=== PATIENT | female | born 1985 | race Caucasian/White ===

== ENCOUNTER → 2018-03-23 17:59 | Outpatient (CLI) | payer OTHER ==
[2018-03-23 19:12] LABS: BASOPHILS 1.3 % (0-2); EOSINOPHILS 5.8 % (0-7); HEMATOCRIT 23.2 % (36.0-48.0); IMMATURE GRANULOCYTES 0.1 % (0-5); LYMPHOCYTES 17.2 % (15-50); MCH 28.9 pg (26.0-34.0); MCHC 31.9 g/dL (31.0-37.0); MCV 90.6 fL (80.0-100.0); MEAN PLATELET VOLUME 9.7 fL (7.4-10.4); MONOCYTES 8.9 % (2-11); NEUTROPHILS 66.7 % (40-80); PLATELET COUNT 265 10x3/uL (130-400); RBC 2.56 10x6/uL (4.00-5.40); RDW 19.5 % (11.5-14.5); WBC 7.6 10x3/uL (4.8-10.8)
[2018-03-23 19:20] LABS: HEMOGLOBIN 7.4 g/dL (12-16)
[2018-03-23 19:33] LABS: ALBUMIN 1.8 g/dL (3.4-5.0); ALKALINE PHOSPHATASE 187 U/L (46-116); ALT (SGPT) 117 U/L (10-68); BILIRUBIN - DIRECT 1.23 mg/dL (0.00-0.30); BILIRUBIN - INDIRECT 1.03 mg/dL (0.00-1.00); BILIRUBIN - TOTAL 2.26 mg/dL (0.2-1.3); CALC OSMOLALITY 269 mosm/kg (275-300); CALCIUM 8.1 mg/dL (8.5-10.1); CARBON DIOXIDE 25.3 mmol/L (21.0-32.0); CHLORIDE - SERUM 100 mmol/L (98-107); CREATININE - SERUM 0.7 mg/dL (0.6-1.3); GLUCOSE 104 mg/dL (74-106); POTASSIUM - SERUM 3.2 mmol/L (3.5-5.1); PROTEIN - SERUM 7.1 g/dL (6.4-8.2); SODIUM 136 mmol/L (136-145); UREA NITROGEN 8 mg/dL (7-18); eGFR NON AFRICAN AMERICAN > 90 mL/min (90-120)
== END | disposition home or self-care (01) ==
LOC: D.LABREF 17:59
PROVIDERS: Specialist
DX: Z51.81 Encounter for therapeutic drug level monitoring (principal); Z79.2 Long term (current) use of antibiotics; I38 Endocarditis, valve unspecified

== ENCOUNTER → 2018-03-30 20:30 | Outpatient (CLI) | payer OTHER ==
[2018-03-30 21:54] LABS: HEMATOCRIT 24.6 % (36.0-48.0); HEMOGLOBIN 7.9 g/dL (12-16); MCH 28.9 pg (26.0-34.0); MCHC 32.1 g/dL (31.0-37.0); MCV 90.1 fL (80.0-100.0); PLATELET COUNT 226 10x3/uL (130-400); RBC 2.73 10x6/uL (4.00-5.40); RDW 20.9 % (11.5-14.5)
[2018-03-30 21:56] LABS: CALC OSMOLALITY 278 mosm/kg (275-300); CALCIUM 8.2 mg/dL (8.5-10.1); CARBON DIOXIDE 22.4 mmol/L (21.0-32.0); CHLORIDE - SERUM 107 mmol/L (98-107); CREATININE - SERUM 0.8 mg/dL (0.6-1.3); GLUCOSE 112 mg/dL (74-106); SODIUM 140 mmol/L (136-145); UREA NITROGEN 9 mg/dL (7-18); eGFR NON AFRICAN AMERICAN 87 mL/min (90-120)
[2018-03-30 21:57] LABS: WBC 0.6 10x3/uL (4.8-10.8)
[2018-03-30 22:01] LABS: POTASSIUM - SERUM 2.4 mmol/L (3.5-5.1)
[2018-03-30 22:44] LABS: LYMPHOCYTES 84 % (15-50); MONOCYTES 10 % (2-11); NEUTROPHILS 6 % (40-80); PLATELET ESTIMATE NORMAL
[2018-03-31 08:48] LABS: ALBUMIN 1.4 g/dL (3.4-5.0); BILIRUBIN - DIRECT 1.94 mg/dL (0.00-0.30); BILIRUBIN - INDIRECT 1.25 mg/dL (0.00-1.00); BILIRUBIN - TOTAL 3.19 mg/dL (0.2-1.3); PROTEIN - SERUM 6.1 g/dL (6.4-8.2)
== END | disposition home or self-care (01) ==
LOC: D.LABREF 20:30
PROVIDERS: Specialist
DX: Z51.81 Encounter for therapeutic drug level monitoring (principal); Z79.2 Long term (current) use of antibiotics; I38 Endocarditis, valve unspecified

== ENCOUNTER → 2018-04-05 16:18 | Outpatient (CLI) | payer OTHER ==
[2018-04-05 17:53] LABS: ALBUMIN 1.2 g/dL (3.4-5.0); ALKALINE PHOSPHATASE 106 U/L (46-116); ALT (SGPT) 18 U/L (10-68); BILIRUBIN - DIRECT 0.77 mg/dL (0.00-0.30); CALC OSMOLALITY 278 mosm/kg (275-300); CALCIUM 7.8 mg/dL (8.5-10.1); CARBON DIOXIDE 22.2 mmol/L (21.0-32.0); CHLORIDE - SERUM 105 mmol/L (98-107); CREATININE - SERUM 0.9 mg/dL (0.6-1.3); GLUCOSE 107 mg/dL (74-106); PROTEIN - SERUM 6.2 g/dL (6.4-8.2); SODIUM 141 mmol/L (136-145); UREA NITROGEN 7 mg/dL (7-18); eGFR NON AFRICAN AMERICAN 76 mL/min (90-120)
[2018-04-05 18:19] LABS: POTASSIUM - SERUM 2.3 mmol/L (3.5-5.1)
== END | disposition home or self-care (01) ==
LOC: D.LABREF 16:18
PROVIDERS: Specialist
DX: Z51.81 Encounter for therapeutic drug level monitoring (principal); Z79.01 Long term (current) use of anticoagulants; I38 Endocarditis, valve unspecified